=== PATIENT | female | born 1945 | race Caucasian/White ===

== ENCOUNTER → 2017-02-22 | Outpatient (CLI) | payer OTHER ==
--- NOTE | ~2017-02-22 | MY29 ---
[facility] A Service of [facility] RADIOLOGY TEXT RESULTS PATIENT: ALEKSANDR HENRY LOCATION: [facility] : 41 UNIT #: [id number] AGE: [address]: Josh Araujo MD SEX: F ORDER DR: [id number] [facility]. [place], [place] [address] [id number] O MR#: [id number] Acc #: [id number] NAME: ALEKSANDR HENRY : 1945 SEX: F STUDY DATE/TIME: 02/22/2017 13:24 UNIT: [facility] ROOM: STUDY DESCRIPTION: MY SALVATORE SCREENING W/ CAD BILAT Attending Physician: Josh Araujo M.D. Referring Physician: Josh Araujo M.D. Ordering Physician: Josh Araujo M.D. Primary Care Physician: Josh Araujo M.D. MEDICAL IMAGING REPORT This report is preliminary unless electronic signature is present EXAM Bilateral Digital Screening Mammogram with CAD INDICATION Breast cancer screening. 71-year-old asymptomatic female. No personal or family history of breast cancer. COMPARISON 02/04/2016 FINDINGS There are scattered fibroglandular tissues. No suspicious findings are present. IMPRESSION No mammographic evidence of malignancy. Annual screening mammography and clinical breast exam are recommended. A result letter will be sent to the patient. Patients over the age of 40 are entered into a reminder system with target due date for the next mammogram. BIRADS: 1 Negative Dictated by... Jamir Lui M.D. [facility] A Service of [facility] RADIOLOGY TEXT RESULTS PATIENT: ALEKSANDR HENRY LOCATION: [facility] : 41 UNIT #: [id number] AGE: [address]: Josh Araujo MD SEX: F ORDER DR: THIS IS AN ELECTRONICALLY VERIFIED REPORT Jamir Lui M.D. at 02/24/2017 9:20 PM BLM/to TD: 02/22/2017 16:45 JOB #: [id number] MEDICAL IMAGING REPORT Page 1 of 1 COPY
== END | disposition home or self-care (01) ==
LOC: CWCC 12:15
DX: Z12.31 Encounter for screening mammogram for malignant neoplasm of breast (principal)
CPT/HCPCS: G0202